=== PATIENT | male | born 1965 | race Two or more races ===

== ENCOUNTER 2018-01-05 15:16 | Emergency (ER) | payer OTHER ==
--- NOTE | 2018-01-05 16:37 | CR ---
Thoracic spine: AP, lateral and swimmer's views of the thoracic spine were obtained. Mild disc space narrowing is seen within the lower cervical spine. Anterior osteophytes are seen within the cervical spine. Mild endplate osteophytes are noted within the upper thoracic and lower thoracic spine. Vertebral body heights are maintained within the thoracic spine. Minimal disc space narrowing is noted within the upper thoracic spine. Pedicles are intact. No subluxation or fracture is seen. Impression: 1. Mild degenerative change as noted above. Diagnostic code #2
--- NOTE | 2018-01-05 17:40 | EDM.PDOC ---
ED HPI GENERAL MEDICAL PROBLEM - General Chief Complaint: Back Pain or Injury Stated Complaint: BACK PAIN Time Seen by Provider: 01/05/18 15:40 Source of Information: Reports: Patient History Limitations: Reports: No Limitations - History of Present Illness INITIAL COMMENTS - FREE TEXT/NARRATIVE: The patient presents with left thoracic back pain. This has been going on and off for over a month. He now has some pain to his left chest. He has no shortness of breath. He does not remember a specific injury. He has no numbness. He has some numbness in his legs at times. He has no fever, chills, cough, congestion or runny nose. He has no abdominal pain, nausea or vomiting. He is diabetic and stopped taking his metformin a few weeks ago. Onset: Gradual Duration: Week(s): (4) Location: Reports: Chest, Back Quality: Reports: Sharp Severity: Moderate Improves with: Reports: None Worsens with: Reports: None Associated Symptoms: Reports: Chest Pain. Denies: Fever/Chills, Nausea/Vomiting , Shortness of Breath Right Upper Back Pain Score (Numeric/FACES): 7 - Related Data Allergies Allergy/AdvReac Type Severity Reaction Status Date / Time No Known Allergies Allergy Verified 01/05/18 15:44 Home Meds: Home Meds Cyclobenzaprine [Flexeril] 10 mg PO TID PRN #20 tab 01/05/18 [Rx] Hydrocodone/Acetaminophen [Hydrocodon-Acetaminophen 5-325] 1 - 2 each PO Q6HR PRN #10 tablet 01/05/18 [Rx] metFORMIN [Glucophage XR] 500 mg PO DAILY #30 tab.er 01/05/18 [Rx] Past Medical History Cardiovascular History: Reports: Hypertension Musculoskeletal History: Reports: Fracture Other Neuro History: Surgery to the "head" patient is unsure of what type of surgery, as he was 6 years old Endocrine/Metabolic History: Reports: Diabetes, Type II Social & Family History - Family History Family Medical History: Noncontributory - Tobacco Use Smoking Status *Q: Never Smoker - Recreational Drug Use Recreational Drug Use: No ED ROS GENERAL - Review of Systems Review Of Systems: See Below Constitutional: Reports: No Symptoms HEENT: Reports: No Symptoms Respiratory: Reports: No Symptoms Cardiovascular: Reports: Chest Pain (Left side) Endocrine: Reports: No Symptoms GI/Abdominal: Reports: No Symptoms : Reports: No Symptoms Musculoskeletal: Reports: Back Pain (Left upper back) Skin: Reports: No Symptoms ED EXAM,LOWER BACK PAIN/INJURY - Physical Exam Exam: See Below Exam Limited By: No Limitations General Appearance: Alert, No Apparent Distress Ears: Normal External Exam Nose: Normal Inspection Head: Atraumatic, Normocephalic Neck: Normal Inspection Respiratory/Chest: No Respiratory Distress, Lungs Clear, Normal Breath Sounds Cardiovascular: Regular Rate, Rhythm, No Edema, No Murmur GI/Abdominal: Soft, Non-Tender, No Organomegaly, No Mass Back Exam: Other (Mild pain upon palpation to the left upper back) Extremities: Normal Inspection Neurological: Alert, No Motor/Sensory Deficits, Oriented x 3 EKG INTERPRETATION EKG Date: 01/05/18 Time: 17:45 Rhythm: NSR Rate (Beats/Min): 84 [place]: Normal P-Wave: Present QRS: Normal ST-T: Normal QT: Normal Course - Vital Signs Last Recorded V/S: Last Vital Signs Temp 98.3 F 01/05/18 15:39 Pulse 97 01/05/18 15:39 Resp 14 01/05/18 15:39 BP 159/97 H 01/05/18 15:39 Pulse Ox 99 01/05/18 15:39 - Orders/Labs/Meds Orders: Active Orders 24 hr Category Date Time Status Cardiac Monitoring [RC] . DIRECTED Care 01/05/18 15:54 Active EKG Documentation Completion [RC] ASDIRECTED Care 01/05/18 17:39 Active EKG 12 Lead [EK] Stat Ther 01/05/18 17:39 Ordered Labs: Laboratory Tests 01/05/18 01/05/18 01/05/18 Range/Units 16:22 16:22 16:22 WBC 5.14 (4.23-9.07) K/mm3 RBC 4.76 (4.63-6.08) M/mm3 Hgb 15.8 (13.7-17.5) gm/L Hct 44.2 (40.1-51.0) % MCV 92.9 H (79.0-92.2) fl MCH 33.2 H (25.7-32.2) pg MCHC 35.7 H (32.2-35.5) g/dl RDW Std Deviation 39.8 (35.1-43.9) fL Plt Count 305 (163-337) K/mm3 MPV 10.1 (9.4-12.3) fl Neut % (Auto) 55.8 (34.0-67.9) % Lymph % (Auto) 25.5 (21.8-53.1) % [place] % (Auto) 14.2 H (5.3-12.2) % Eos % (Auto) 3.5 (0.8-7.0) Baso % (Auto) 1.0 (0.1-1.2) % Neut # (Auto) 2.87 (1.78-5.38) K/mm3 Lymph # (Auto) 1.31 L (1.32-3.57) K/mm3 [place] # (Auto) 0.73 (0.30-0.82) K/mm3 Eos # (Auto) 0.18 (0.04-0.54) K/mm3 Baso # (Auto) 0.05 (0.01-0.08) K/mm3 D-Dimer, Quantitative 0.25 (0.19-0.50) mg/L Sodium 132 L (136-145) mEq/L Potassium 4.1 (3.5-5.1) mEq/L Chloride 97 L (98-107) mEq/L Carbon Dioxide 26 (21-32) mEq/L Anion Gap 13.1 (5-15) BUN 14 (7-18) mg/dL Creatinine 0.9 (0.7-1.3) mg/dL Est Cr Clr Drug Dosing 99.14 mL/min Estimated GFR (MDRD) > 60 (>60) mL/min BUN/Creatinine Ratio 15.6 (14-18) Glucose 461 H (74-106) mg/dL Calcium 9.3 (8.5-10.1) mg/dL Total Bilirubin 0.4 (0.2-1.0) mg/dL AST 43 H (15-37) U/L ALT 127 H (16-63) U/L Alkaline Phosphatase 86 (46-116) U/L Troponin I < 0.017 (0.00-0.056) ng/mL Total Protein 7.3 (6.4-8.2) g/dl Albumin 3.5 (3.4-5.0) g/dl Globulin 3.8 gm/dL Albumin/Globulin Ratio 0.9 L (1-2) - Re-Assessments/Exams Free Text/Narrative Re-Assessment/Exam: 01/05/18 17:50 I ordered labs, EKG and an x-ray of his thoracic spine. His EKG shows a NSR with no acute changes. His CXR looks good. His CBC looks good. His troponin is negative. His glucose is 461. His liver enzymes were slightly elevated. His x-ray shows some degenerative changes. I will get him on some flexeril and hydrocodone and I will start him back on some metformin. Departure - Departure Time of Disposition: 17:50 Disposition: Home, Self-Care 01 Condition: Good Clinical Impression: Atypical chest pain Thoracic back pain Qualifiers: Chronicity: acute Back pain laterality: left Qualified Code(s): M54.6 - Pain in thoracic spine Diabetes Qualifiers: Diabetes mellitus type: type 2 Diabetes mellitus oysterman insulin use: with mcfp use Diabetes mellitus complication status: without complication Qualified Code(s): E11.9 - Type 2 diabetes mellitus without complications; Z79.4 - continuous churn buttermaker (current) use of insulin - Discharge Information *PRESCRIPTION DRUG MONITORING PROGRAM REVIEWED*: No *COPY OF PRESCRIPTION DRUG MONITORING REPORT IN PATIENT CISCO: No Prescriptions: Hydrocodone/Acetaminophen [Hydrocodon-Acetaminophen 5-325] 1 - 2 each PO Q6HR PRN #10 tablet PRN Reason: Pain Cyclobenzaprine [Flexeril] 10 mg PO TID PRN #20 tab PRN Reason: Pain metFORMIN [Glucophage XR] 500 mg PO DAILY #30 tab.er Referrals: PCP,None [Primary Care Provider] - Forms: ED Department Discharge Additional Instructions: Take the metformin daily. Take the flexeril and hydrocodone as needed for pain. Follow up with your doctor in a couple weeks. Please return if you are worse. You can also take an antiinflammatory such as motrin or aleve for pain. - My Orders Last 24 Hours: My Active Orders 01/05/18 15:54 Cardiac Monitoring [RC] . DIRECTED 01/05/18 17:39 EKG Documentation Completion [RC] ASDIRECTED EKG 12 Lead [EK] Stat - Assessment/Plan Last 24 Hours: My Active Orders 01/05/18 15:54 Cardiac Monitoring [RC] . DIRECTED 01/05/18 17:39 EKG Documentation Completion [RC] ASDIRECTED EKG 12 Lead [EK] Stat
== END 2018-01-05 18:10 | disposition home or self-care (01) ==
LOC: JD.ED 15:16
DX: R07.89 Other chest pain (principal); M54.6 Pain in thoracic spine; I10 Essential (primary) hypertension; E11.9 Type 2 diabetes mellitus without complications; Z79.4 Long term (current) use of insulin
CPT/HCPCS: 36415; 72070; 72070-26; 80053; 84484; 85025; 85379; 93005; 99285-25